=== PATIENT | female | born 1950 | race Caucasian/White ===

== ENCOUNTER → 2017-06-07 | Outpatient (CLI) | payer OTHER ==
[~2017-06-07] MED LIST: DIPH25TA82; IBP600T1; METO-354 PO; ONDAN4ODT PO; PNT40TEC PO
--- NOTE | 2017-06-07 08:45 | Diagnostic Imaging Report ---
INDICATION: Evaluate for osteoarthritis, rheumatoid arthritis. Right middle finger pain and swelling. TECHNIQUE: 3 views of the right and left hand. COMPARISON: None FINDINGS: There is mild diffuse osteopenia. Right hand: No acute fracture or dislocation is seen in the right hand. Alignment appears normal. Mild degenerative changes are seen in the right thumb interphalangeal joint and at the basal joints of the right thumb. No cortical erosions are seen. Left hand: No acute fracture or dislocation is seen in the left hand. Alignment appears normal. There are mild degenerative changes of the basal joints of the left thumb. No cortical erosions are seen. IMPRESSION: 1. Minimal degenerative changes, mostly at the basal joints of the thumbs. No cortical erosions are seen. 2. Diffuse osteopenia with no acute osseous abnormality seen in the bilateral hands. Dictated by: Dictated on workstation # [id number]
== END ==
LOC: RAD 07:20
PROVIDERS: ATTEND Internal Medicine Rheumatology
DX: M85.841 Other specified disorders of bone density and structure, right hand (principal); M79.89 Other specified soft tissue disorders

== ENCOUNTER → 2018-01-19 | Outpatient (CLI) | payer OTHER ==
--- NOTE | 2018-01-19 13:11 | Diagnostic Imaging Report ---
EXAMINATION: Digital mammogram bilateral screening with 3D tomosynthesis and computer-aided detection (CAD) system. INDICATION: Screening. COMPARISON: This study was compared to the prior exams of 09/13/2014 and 08/10/2013. At this time, there are no current complaints. FINDINGS: The fibroglandular tissue in both breasts is heterogeneously dense. This does limit the sensitivity of this exam. Overall, there does not appear to have been any significant change when compared to the prior study. No primary or secondary sign of malignancy is noted. 3D tomographic images fail to show any sign of malignancy. IMPRESSION: 1. There is no evidence of malignancy. 2. The patient should have her annual bilateral screening mammogram on schedule in January of 2019. ACR BI-RADS Category 1: Negative. Result letter will be mailed to the patient. Note: At least 10% of breast cancer is not imaged by mammography. Dictated by: Dictated on workstation # [id number]
== END ==
LOC: RAD 09:57
PROVIDERS: ATTEND Nurse Practitioner Family
DX: Z12.31 Encounter for screening mammogram for malignant neoplasm of breast (principal)
CPT/HCPCS: 77067

== ENCOUNTER → 2018-02-24 | Outpatient (CLI) | payer OTHER ==
--- NOTE | 2018-02-24 12:37 | Diagnostic Imaging Report ---
INDICATION: Postmenopausal screening for osteoporosis. COMPARISON: 09/13/2014. FINDINGS: AP Spine L1-L4: [BMD (g/cm2): 0.867] [T-Score: -2.8] [Z-Score: -0.8] [BMD Previous: 0.854] [BMD % Change: 1.5] LT Hip Neck: [BMD (g/cm2): 0.684] [T-Score: -2.5] [Z-Score: -0.8] LT Hip Total: [BMD (g/cm2):0.720] [T-Score:-2.3] [Z-Score: -0.8] [BMD Previous: 0.784] [BMD % Change: N] RT Hip Neck: [BMD (g/cm2):0.671] [T-Score:-2.6] [Z-Score:-0.9] RT Hip Total: [BMD (g/cm2):0.717] [T-score:-2.3] [Z-Score:-0.8] [BMD Previous:0.761] [BMD % Change:N/A] *Indicates significant change from prior examination based on 95% confidence level. World Health Organization criteria for BMD interpretation classify patients as Normal (T-score at or above -1.0), Osteopenic (T-score between -1.0 and -2.5) or Osteoporotic (T-score at or below -2.5). LIMITATIONS AND MODIFICATION: None. FRACTURE RISK (FRAX SCORE): The ten year probability of (%): Major Osteoporotic Fracture: [13] Hip Fracture: [4.6] IMPRESSION: 1. Osteoporosis. 2. No significant change in bone mineral density since prior examination. 3. See below National Osteoporosis Foundation guidelines on when to potentially initiate pharmacologic therapy. Based on the National Osteoporosis Foundation Guidelines, pharmacologic treatment should be initiated in any of the following, unless clinical conditions suggest otherwise: * Any patient with prior fragility fracture of the hip or vertebrae. A spine fracture indicates 5X risk for subsequent spine fracture and 2X risk for subsequent hip fracture. * Osteoporosis (T-score <-2.5). * Postmenopausal women and men age 50 and older with low bone mass/osteopenia (T-score between -1.0 and -2.5) by DXA and 10-year major osteoporotic fracture greater than 20% or a 10-year probability of hip fracture greater than 3%. These fracture risks are supplied above in the FRAX score, if applicable. * Clinician judgement and/or patient preferences may indicate treatment for people with 10-year fracture probabilities above or below these levels. Dictated on workstation # [id number]
== END ==
LOC: RAD 09:04
PROVIDERS: ATTEND Nurse Practitioner Family
DX: Z13.820 Encounter for screening for osteoporosis (principal); M81.0 Age-related osteoporosis without current pathological fracture; Z78.0 Asymptomatic menopausal state
CPT/HCPCS: 77080